=== PATIENT | male | born 1970 | race Caucasian/White ===

== ENCOUNTER 2020-09-13 14:17 | Inpatient (IN) | payer MEDICAID ==
[~2020-09-13] VITALS: Ht 165.1 cm; Wt 42.0 kg
[2020-09-13 16:04] LABS: MEAN CORPUSCULAR HEMOGLOBIN 29.8 pg (28.0-32.0); MEAN CORPUSCULAR VOLUME 92.8 fL (80.0-94.0); MEAN PLATELET VOLUME 9.7 fl (7.4-10.4); PLATELET 58 x1000/uL (130-400); RED BLOOD CELL COUNT 1.94 mill/uL (4.7-6.1); RED CELL DISTRIBUTION WIDTH 15.3 % (11.6-14.6)
[2020-09-13 16:12] LABS: CHLORIDE 107 mEq/L (98-107)
[2020-09-13 16:18] LABS: HEMOGLOBIN. 5.8 g/dL (14.0-18.0)
[2020-09-13] MEDS ORDERED: DEXTROSE 10% WATER 500 ML IV ONE (17:00)
[2020-09-13 19:00] LABS: PLATELET ESTIMATE DECREASED
[2020-09-13] MEDS ORDERED: ONDANSETRON HCL 4MG/2ML INJ IV PRN (19:45)
[2020-09-13] MEDS ORDERED: ACETAMINOPHEN 325MG TABLET PO PRN ×2 (19:45)
[2020-09-13] MEDS ORDERED: DIPHENHYDRAMINE 50MG/ML VIAL IV PRN (19:45)
[2020-09-13] MEDS ORDERED: ZOLPIDEM TARTRATE 5MG TABLET PO PRN (19:45)
[2020-09-13] MEDS: BLOOD SUGAR DIAGNOSTIC STRIP TEST SCH (21:00)
[2020-09-13] MEDS: INSULIN LISPRO 100 UNITS/ML SUBCUT SCH (23:49)
[2020-09-13] MEDS: SODIUM CHLORIDE 0.9% INJ 3ML FLUSH IVF SCH (23:50)
[2020-09-14] VITALS (8 sets, daily range): BP systolic 126–165; BP diastolic 67–87
[2020-09-14] MEDS: SODIUM CHLORIDE 0.9% INJ 3ML FLUSH IVF SCH ×3 (05:52→23:25)
[2020-09-14] MEDS: BLOOD SUGAR DIAGNOSTIC STRIP TEST SCH ×4 (07:03→21:03)
[2020-09-14] MEDS: INSULIN LISPRO 100 UNITS/ML SUBCUT SCH ×4 (07:04→21:00)
[2020-09-14] MEDS: DEXTROSE 50% WATER 50ML SYRINGE IV PRN (07:07)
[2020-09-14 09:39] LABS: HEMATOCRIT. 21.9 % (42.0-52.0); HEMOGLOBIN. 7.1 g/dL (14.0-18.0); MEAN CORPUSCULAR HEMOGLOBIN 29.2 pg (28.0-32.0); MEAN CORPUSCULAR VOLUME 90.4 fL (80.0-94.0); MEAN PLATELET VOLUME 8.6 fl (7.4-10.4); PLATELET 62 x1000/uL (130-400); RED BLOOD CELL COUNT 2.42 mill/uL (4.7-6.1); RED CELL DISTRIBUTION WIDTH 15.2 % (11.6-14.6)
[2020-09-14] MEDS ORDERED: LOPERAMIDE 2MG/15ML UDC PO PRN (15:30)
[2020-09-14] MEDS: LOPERAMIDE HCL 2MG CAPSULE PO PRN (15:53)
[2020-09-14 17:54] LABS: PLATELET ESTIMATE DECREASED
[2020-09-14] MEDS ORDERED: HEPARIN 100 UNITS/1 ML VIAL IVF PRN ×3 (23:30→23:45)
[2020-09-15] VITALS (10 sets, daily range): BP systolic 109–193; BP diastolic 52–78
[2020-09-15 03:24] LABS: HEMATOCRIT. 23.7 % (42.0-52.0); HEMOGLOBIN. 7.9 g/dL (14.0-18.0); MEAN CORPUSCULAR HEMOGLOBIN 29.8 pg (28.0-32.0); MEAN CORPUSCULAR VOLUME 89.6 fL (80.0-94.0); MEAN PLATELET VOLUME 8.8 fl (7.4-10.4); PLATELET 57 x1000/uL (130-400); RED BLOOD CELL COUNT 2.64 mill/uL (4.7-6.1); RED CELL DISTRIBUTION WIDTH 14.7 % (11.6-14.6)
[2020-09-15] MEDS: CLONIDINE 0.1MG TABLET PO PRN (04:17)
[2020-09-15] MEDS: DEXTROSE 50% WATER 50ML SYRINGE IV PRN (06:17)
[2020-09-15] MEDS: SODIUM CHLORIDE 0.9% INJ 3ML FLUSH IVF SCH ×3 (06:50→22:00)
[2020-09-15] MEDS: INSULIN LISPRO 100 UNITS/ML SUBCUT SCH ×4 (06:50→20:32)
[2020-09-15] MEDS: BLOOD SUGAR DIAGNOSTIC STRIP TEST SCH ×4 (06:50→20:31)
[2020-09-15 07:18] LABS: PLATELET ESTIMATE DECREASED
[2020-09-15] MEDS: LOPERAMIDE HCL 2MG CAPSULE PO PRN (12:58)
[2020-09-15] MEDS: FOLIC ACID/VITAMIN B COMP W-C TABLET PO SCH (12:58)
[2020-09-15] MEDS: AMLODIPINE 10MG TABLET PO SCH (16:25)
[2020-09-15] MEDS: EPOETIN ALFA-EPBX 4,000 UNIT/ML VIAL SUBCUT SCH (20:33)
[2020-09-16] VITALS: BP 150/63
[2020-09-16 04:00] VITALS: BP 177/56
[2020-09-16] MEDS: DEXTROSE 50% WATER 50ML SYRINGE IV PRN (05:43)
[2020-09-16] MEDS: SODIUM CHLORIDE 0.9% INJ 3ML FLUSH IVF SCH ×3 (05:45→21:06)
[2020-09-16] MEDS: CLONIDINE 0.1MG TABLET PO PRN (06:04)
[2020-09-16] MEDS: INSULIN LISPRO 100 UNITS/ML SUBCUT SCH ×4 (07:15→21:07)
[2020-09-16] MEDS: BLOOD SUGAR DIAGNOSTIC STRIP TEST SCH ×4 (07:21→21:06)
[2020-09-16 08:00] VITALS: BP 125/66
[2020-09-16] MEDS: FOLIC ACID/VITAMIN B COMP W-C TABLET PO SCH (08:44)
[2020-09-16] MEDS: AMLODIPINE 10MG TABLET PO SCH (08:44)
[2020-09-16] MEDS: LOPERAMIDE HCL 2MG CAPSULE PO PRN (08:47)
[2020-09-16 12:00] VITALS: BP 155/97
[2020-09-16 16:00] VITALS: BP 157/71
[2020-09-16 20:00] VITALS: BP 166/52
[2020-09-17] VITALS: BP 171/59
[2020-09-17] MEDS: CLONIDINE 0.1MG TABLET PO PRN (00:18)
[2020-09-17 04:00] VITALS: BP 161/54
[2020-09-17] MEDS: SODIUM CHLORIDE 0.9% INJ 3ML FLUSH IVF SCH ×3 (06:06→21:12)
[2020-09-17] MEDS: DEXTROSE 50% WATER 50ML SYRINGE IV PRN ×2 (06:06→12:23)
[2020-09-17] MEDS: BLOOD SUGAR DIAGNOSTIC STRIP TEST SCH ×4 (06:06→21:11)
[2020-09-17] MEDS: INSULIN LISPRO 100 UNITS/ML SUBCUT SCH ×4 (06:07→21:00)
[2020-09-17 06:24] LABS: INR 1.2; PROTHROMBIN TIME 12.3 sec (9.6-11.0)
[2020-09-17 06:26] LABS: CHLORIDE 106 mEq/L (98-107)
[2020-09-17 06:44] LABS: HEMATOCRIT. 25.3 % (42.0-52.0); HEMOGLOBIN. 8.5 g/dL (14.0-18.0); MEAN CORPUSCULAR HEMOGLOBIN 30.2 pg (28.0-32.0); MEAN CORPUSCULAR VOLUME 90.2 fL (80.0-94.0); MEAN PLATELET VOLUME 9.5 fl (7.4-10.4); PLATELET 62 x1000/uL (130-400); RED CELL DISTRIBUTION WIDTH 14.8 % (11.6-14.6)
[2020-09-17 06:48] LABS: TOTAL IRON BINDING CAPACITY 125 ug/dL (250-450)
[2020-09-17 08:00] VITALS: BP 157/91
[2020-09-17] MEDS: AMLODIPINE 10MG TABLET PO SCH (09:00)
[2020-09-17] MEDS: FOLIC ACID/VITAMIN B COMP W-C TABLET PO SCH (09:00)
[2020-09-17 12:00] VITALS: BP 144/57
[2020-09-17 15:25] LABS: NUCLEATED RED BLOOD CELLS 1 /100 WBC; PLATELET ESTIMATE DECREASED
[2020-09-17 16:00] VITALS: BP 160/82
[2020-09-17] MEDS ORDERED: SORBITOL 70% SOLN 30ML PO NR (19:00)
[2020-09-17 20:00] VITALS: BP 122/80
[2020-09-18] VITALS: BP 154/57
[2020-09-18 04:00] VITALS: BP 126/53
[2020-09-18] MEDS: DEXTROSE 50% WATER 50ML SYRINGE IV PRN ×3 (05:46→20:37)
[2020-09-18] MEDS: BLOOD SUGAR DIAGNOSTIC STRIP TEST SCH ×4 (05:46→21:26)
[2020-09-18] MEDS: INSULIN LISPRO 100 UNITS/ML SUBCUT SCH ×4 (05:46→20:38)
[2020-09-18] MEDS: SODIUM CHLORIDE 0.9% INJ 3ML FLUSH IVF SCH ×3 (05:47→21:27)
[2020-09-18 08:00] VITALS: BP 151/98
[2020-09-18] MEDS: AMLODIPINE 10MG TABLET PO SCH (09:36)
[2020-09-18] MEDS: SODIUM HYPOCHLORITE 0.125% 473ML SOLUTION TOP SCH (09:36)
[2020-09-18] MEDS: FOLIC ACID/VITAMIN B COMP W-C TABLET PO SCH (09:36)
[2020-09-18 10:53] LABS: HEMATOCRIT. 26.7 % (42.0-52.0); HEMOGLOBIN. 8.6 g/dL (14.0-18.0); MEAN CORPUSCULAR HEMOGLOBIN 29.3 pg (28.0-32.0); MEAN CORPUSCULAR VOLUME 90.8 fL (80.0-94.0); MEAN PLATELET VOLUME 9.3 fl (7.4-10.4); PLATELET 66 x1000/uL (130-400); RED BLOOD CELL COUNT 2.94 mill/uL (4.7-6.1); RED CELL DISTRIBUTION WIDTH 15.7 % (11.6-14.6)
[2020-09-18 11:01] LABS: INR 1.2; PROTHROMBIN TIME 12.4 sec (9.6-11.0)
[2020-09-18 11:30] LABS: CHLORIDE 109 mEq/L (98-107)
[2020-09-18 11:41] LABS: PHOSPHORUS 4.9 mg/dL (2.5-4.9)
[2020-09-18 12:00] VITALS: BP 153/66
[2020-09-18 13:35] LABS: PLATELET ESTIMATE DECREASED
[2020-09-18 16:00] VITALS: BP 143/84
[2020-09-18] MEDS ORDERED: FENTANYL CITRATE/PF 50MCG/ML 2ML VIAL ONE (16:42)
[2020-09-18] MEDS ORDERED: MIDAZOLAM HCL 5 MG/5 ML VIAL ONE (16:42)
[2020-09-18] MEDS ORDERED: MIDAZOLAM HCL 2 MG/2 ML VIAL IV PRN (17:00)
[2020-09-18] MEDS ORDERED: FENTANYL CITRATE/PF 50MCG/ML 2ML VIAL IV PRN (17:05)
[2020-09-18 20:00] VITALS: BP 122/45
[2020-09-18] MEDS: EPOETIN ALFA-EPBX 4,000 UNIT/ML VIAL SUBCUT SCH (21:26)
[2020-09-19] VITALS: BP 145/48
[2020-09-19 04:00] VITALS: BP 136/70
[2020-09-19 06:35] LABS: INR 1.2; PROTHROMBIN TIME 12.3 sec (9.6-11.0)
[2020-09-19] MEDS: SODIUM CHLORIDE 0.9% INJ 3ML FLUSH IVF SCH ×3 (06:42→22:00)
[2020-09-19 06:43] LABS: CHLORIDE 111 mEq/L (98-107)
[2020-09-19 06:44] LABS: GAMMA GLUTAMYL TRANSPEPTIDASE 99 IU/L (11-50); HEMATOCRIT. 26.9 % (42.0-52.0); HEMOGLOBIN. 8.8 g/dL (14.0-18.0); MEAN CORPUSCULAR HEMOGLOBIN 29.8 pg (28.0-32.0); MEAN PLATELET VOLUME 9.2 fl (7.4-10.4); PLATELET 66 x1000/uL (130-400); RED BLOOD CELL COUNT 2.95 mill/uL (4.7-6.1); RED CELL DISTRIBUTION WIDTH 15.5 % (11.6-14.6)
[2020-09-19] MEDS: BLOOD SUGAR DIAGNOSTIC STRIP TEST SCH ×4 (06:51→21:00)
[2020-09-19] MEDS: INSULIN LISPRO 100 UNITS/ML SUBCUT SCH ×4 (06:51→21:00)
[2020-09-19 07:03] LABS: HEPATITIS B SURFACE ANTIGEN NEGATIVE
[2020-09-19 08:00] VITALS: BP 138/60
[2020-09-19] MEDS: AMLODIPINE 10MG TABLET PO SCH (09:33)
[2020-09-19] MEDS: SODIUM HYPOCHLORITE 0.125% 473ML SOLUTION TOP SCH (09:33)
[2020-09-19] MEDS: PANTOPRAZOLE SODIUM 40 MG/VIAL IV SCH (09:33)
[2020-09-19] MEDS: FOLIC ACID/VITAMIN B COMP W-C TABLET PO SCH (09:33)
[2020-09-19 12:00] VITALS: BP_SYST 132; BP_SYST 162; BP_DIAS 36; BP_DIAS 51
[2020-09-19 16:00] VITALS: BP 133/32
[2020-09-19 16:08] LABS: PLATELET ESTIMATE DECREASED
[2020-09-19 19:06] LABS: OVA & PARASITE EXAM Final report (.)
[2020-09-19 20:00] VITALS: BP 155/43
[2020-09-20] VITALS: BP 148/62
[2020-09-20 04:00] VITALS: BP 147/49
[2020-09-20] MEDS: SODIUM CHLORIDE 0.9% INJ 3ML FLUSH IVF SCH ×3 (06:00→22:33)
[2020-09-20] MEDS: INSULIN LISPRO 100 UNITS/ML SUBCUT SCH ×4 (07:02→21:00)
[2020-09-20] MEDS: BLOOD SUGAR DIAGNOSTIC STRIP TEST SCH ×4 (07:02→21:00)
[2020-09-20 07:18] LABS: PHOSPHORUS 4.3 mg/dL (2.5-4.9)
[2020-09-20 08:00] VITALS: BP 159/51
[2020-09-20 11:59] VITALS: BP 164/65
[2020-09-20] MEDS: PANTOPRAZOLE SODIUM 40 MG/VIAL IV SCH (12:04)
[2020-09-20] MEDS: AMLODIPINE 10MG TABLET PO SCH (12:05)
[2020-09-20] MEDS: FOLIC ACID/VITAMIN B COMP W-C TABLET PO SCH (12:05)
[2020-09-20 16:00] VITALS: BP 143/44
[2020-09-20] MEDS: SODIUM HYPOCHLORITE 0.125% 473ML SOLUTION TOP SCH (17:54)
[2020-09-20 20:00] VITALS: BP 133/79
[2020-09-20] MEDS: EPOETIN ALFA-EPBX 4,000 UNIT/ML VIAL SUBCUT SCH (22:33)
[2020-09-21] VITALS: BP 130/97
[2020-09-21 04:00] VITALS: BP 136/51
[2020-09-21] MEDS: SODIUM CHLORIDE 0.9% INJ 3ML FLUSH IVF SCH ×3 (04:56→21:14)
[2020-09-21] MEDS: BLOOD SUGAR DIAGNOSTIC STRIP TEST SCH ×4 (06:28→21:13)
[2020-09-21] MEDS: INSULIN LISPRO 100 UNITS/ML SUBCUT SCH ×4 (06:29→21:00)
[2020-09-21 08:00] VITALS: BP 158/81
[2020-09-21] MEDS: FOLIC ACID/VITAMIN B COMP W-C TABLET PO SCH (08:52)
[2020-09-21] MEDS: AMLODIPINE 10MG TABLET PO SCH (08:52)
[2020-09-21] MEDS: PANTOPRAZOLE SODIUM 40 MG/VIAL IV SCH (08:52)
[2020-09-21] MEDS: SODIUM HYPOCHLORITE 0.125% 473ML SOLUTION TOP SCH (08:57)
[2020-09-21] MEDS ORDERED: PIPERACILLIN/TAZOBACTAM 3.375 G in DEXT 5% WATER 100 ML IV SCH (11:45)
[2020-09-21 12:00] VITALS: BP 167/45
[2020-09-21] MEDS: PIPERACILLIN/TAZOBACTAM 2.25 G in DEXTROSE 5% WATER 50 ML IV SCH ×2 (14:52→21:14)
[2020-09-21 16:00] VITALS: BP 130/26
[2020-09-22] VITALS: BP 93/57
[2020-09-22 04:00] VITALS: BP 151/59
[2020-09-22] MEDS: PIPERACILLIN/TAZOBACTAM 2.25 G in DEXTROSE 5% WATER 50 ML IV SCH ×3 (05:26→21:17)
[2020-09-22] MEDS: SODIUM CHLORIDE 0.9% INJ 3ML FLUSH IVF SCH ×3 (05:26→21:17)
[2020-09-22] MEDS: BLOOD SUGAR DIAGNOSTIC STRIP TEST SCH ×3 (06:58→21:15)
[2020-09-22] MEDS: INSULIN LISPRO 100 UNITS/ML SUBCUT SCH ×3 (06:58→21:18)
[2020-09-22 08:00] VITALS: BP_SYST 59
[2020-09-22] MEDS: AMLODIPINE 10MG TABLET PO SCH (09:00)
[2020-09-22 09:19] LABS: EOSINOPHILS % 14.5 % (0.0-5.0); HEMATOCRIT. 32.3 % (42.0-52.0); HEMOGLOBIN. 10.4 g/dL (14.0-18.0); MEAN CORPUSCULAR HEMOGLOBIN 29.7 pg (28.0-32.0); MEAN CORPUSCULAR VOLUME 92.3 fL (80.0-94.0); MEAN PLATELET VOLUME 9.3 fl (7.4-10.4); MONOCYTES % 7.6 % (2.0-8.0); NEUTROPHILS % 43.9 % (40.0-76.0); PLATELET 77 x1000/uL (130-400); RED CELL DISTRIBUTION WIDTH 16.4 % (11.6-14.6)
[2020-09-22 09:26] LABS: CHLORIDE 108 mEq/L (98-107)
[2020-09-22 09:30] LABS: INR 1.1; PARTIAL THROMBOPLASTIN TIME 33.6 sec (23.4-31.0); PROTHROMBIN TIME 11.8 sec (9.6-11.0)
[2020-09-22] MEDS: PANTOPRAZOLE SODIUM 40 MG/VIAL IV SCH (09:32)
[2020-09-22] MEDS: FOLIC ACID/VITAMIN B COMP W-C TABLET PO SCH (09:32)
[2020-09-22] MEDS: SODIUM HYPOCHLORITE 0.125% 473ML SOLUTION TOP SCH (09:32)
[2020-09-22 12:00] VITALS: BP 137/89
[2020-09-22] MEDS: DEXTROSE 50% WATER 50ML SYRINGE IV PRN (12:11)
[2020-09-22 16:00] VITALS: BP 156/62
[2020-09-22] MEDS: EPOETIN ALFA-EPBX 4,000 UNIT/ML VIAL SUBCUT SCH (21:00)
[2020-09-23] VITALS: BP 159/60
[2020-09-23 04:00] VITALS: BP 158/45
[2020-09-23] MEDS: PIPERACILLIN/TAZOBACTAM 2.25 G in DEXTROSE 5% WATER 50 ML IV SCH ×3 (05:43→20:41)
[2020-09-23] MEDS: SODIUM CHLORIDE 0.9% INJ 3ML FLUSH IVF SCH ×3 (05:44→20:41)
[2020-09-23] MEDS: BLOOD SUGAR DIAGNOSTIC STRIP TEST SCH ×4 (05:44→21:00)
[2020-09-23] MEDS: INSULIN LISPRO 100 UNITS/ML SUBCUT SCH ×4 (07:15→21:00)
[2020-09-23 08:00] VITALS: BP 111/84
[2020-09-23] MEDS: AMLODIPINE 10MG TABLET PO SCH (08:34)
[2020-09-23] MEDS: PANTOPRAZOLE SODIUM 40 MG/VIAL IV SCH (09:10)
[2020-09-23] MEDS: SODIUM HYPOCHLORITE 0.125% 473ML SOLUTION TOP SCH (09:11)
[2020-09-23] MEDS: FOLIC ACID/VITAMIN B COMP W-C TABLET PO SCH (09:11)
[2020-09-23 12:00] VITALS: BP 145/58
[2020-09-23 16:00] VITALS: BP 154/72
[2020-09-23 20:00] VITALS: BP 140/34
[2020-09-24] VITALS (8 sets, daily range): BP systolic 93–183; BP diastolic 31–71
[2020-09-24] MEDS: PIPERACILLIN/TAZOBACTAM 2.25 G in DEXTROSE 5% WATER 50 ML IV SCH ×3 (05:34→21:45)
[2020-09-24] MEDS: SODIUM CHLORIDE 0.9% INJ 3ML FLUSH IVF SCH ×3 (05:34→21:46)
[2020-09-24] MEDS: BLOOD SUGAR DIAGNOSTIC STRIP TEST SCH ×4 (06:23→21:46)
[2020-09-24] MEDS: INSULIN LISPRO 100 UNITS/ML SUBCUT SCH ×4 (06:23→21:00)
[2020-09-24] MEDS: AMLODIPINE 10MG TABLET PO SCH (09:00)
[2020-09-24] MEDS: PANTOPRAZOLE SODIUM 40 MG/VIAL IV SCH (09:42)
[2020-09-24] MEDS: FOLIC ACID/VITAMIN B COMP W-C TABLET PO SCH (09:42)
[2020-09-24] MEDS: SODIUM HYPOCHLORITE 0.125% 473ML SOLUTION TOP SCH (09:43)
[2020-09-24] MEDS: VANCOMYCIN HCL 1000 MG/20 ML ORAL PO SCH ×3 (14:09→23:25)
[2020-09-25] VITALS (7 sets, daily range): BP systolic 65–165; BP diastolic 47–74
[2020-09-25] MEDS: SODIUM CHLORIDE 0.9% INJ 3ML FLUSH IVF SCH ×3 (05:36→21:30)
[2020-09-25] MEDS: PIPERACILLIN/TAZOBACTAM 2.25 G in DEXTROSE 5% WATER 50 ML IV SCH ×3 (05:36→21:30)
[2020-09-25] MEDS: VANCOMYCIN HCL 1000 MG/20 ML ORAL PO SCH ×3 (05:36→18:27)
[2020-09-25] MEDS: BLOOD SUGAR DIAGNOSTIC STRIP TEST SCH ×4 (05:42→21:31)
[2020-09-25] MEDS: INSULIN LISPRO 100 UNITS/ML SUBCUT SCH ×4 (05:42→21:00)
[2020-09-25 06:37] LABS: BASOPHILS % 1.1 % (0.0-2.0); EOSINOPHILS % 14.4 % (0.0-5.0); HEMATOCRIT. 28.6 % (42.0-52.0); HEMOGLOBIN. 9.1 g/dL (14.0-18.0); LYMPHOCYTES % 24.5 % (20.0-50.0); MEAN CORPUSCULAR HEMOGLOBIN 29.8 pg (28.0-32.0); MEAN CORPUSCULAR VOLUME 93.4 fL (80.0-94.0); MEAN PLATELET VOLUME 9.2 fl (7.4-10.4); MONOCYTES % 10.2 % (2.0-8.0); NEUTROPHILS % 49.8 % (40.0-76.0); PLATELET 66 x1000/uL (130-400); RED BLOOD CELL COUNT 3.06 mill/uL (4.7-6.1)
[2020-09-25 06:46] LABS: INR 1.1; PARTIAL THROMBOPLASTIN TIME 31.3 sec (23.4-31.0); PROTHROMBIN TIME 11.8 sec (9.6-11.0)
[2020-09-25 07:57] LABS: CHLORIDE 116 mEq/L (98-107)
[2020-09-25] MEDS: FOLIC ACID/VITAMIN B COMP W-C TABLET PO SCH (09:00)
[2020-09-25] MEDS: PANTOPRAZOLE SODIUM 40 MG/VIAL IV SCH (09:27)
[2020-09-25] MEDS: SODIUM HYPOCHLORITE 0.125% 473ML SOLUTION TOP SCH (09:27)
[2020-09-25] MEDS: AMLODIPINE 10MG TABLET PO SCH (09:27)
[2020-09-25] MEDS: DEXTROSE 50% WATER 50ML SYRINGE IV PRN ×2 (12:29→16:30)
[2020-09-25] MEDS ORDERED: SODIUM CHLORIDE 0.9% 1000ML BAG (SEPSIS BOLUS) IV ONE (13:00)
[2020-09-25] MEDS ORDERED: SODIUM CHLORIDE 0.9% 500 ML IV SCH (13:00)
[2020-09-25] MEDS: DEXTROSE 5% WATER 1,000 ML IV SCH (16:12)
[2020-09-25] MEDS: EPOETIN ALFA-EPBX 4,000 UNIT/ML VIAL SUBCUT SCH (21:30)
[2020-09-26] VITALS: BP 167/69
[2020-09-26] MEDS: VANCOMYCIN HCL 1000 MG/20 ML ORAL PO SCH ×4 (00:26→17:47)
[2020-09-26 04:00] VITALS: BP 147/80
[2020-09-26] MEDS: SODIUM CHLORIDE 0.9% INJ 3ML FLUSH IVF SCH ×3 (05:05→22:06)
[2020-09-26] MEDS: PIPERACILLIN/TAZOBACTAM 2.25 G in DEXTROSE 5% WATER 50 ML IV SCH ×3 (05:05→22:15)
[2020-09-26] MEDS: BLOOD SUGAR DIAGNOSTIC STRIP TEST SCH ×4 (06:03→21:30)
[2020-09-26] MEDS: DEXTROSE 50% WATER 50ML SYRINGE IV PRN (06:03)
[2020-09-26 07:32] LABS: PHOSPHORUS 5.1 mg/dL (2.5-4.9)
[2020-09-26] MEDS: FOLIC ACID/VITAMIN B COMP W-C TABLET PO SCH (08:56)
[2020-09-26] MEDS: AMLODIPINE 10MG TABLET PO SCH (08:56)
[2020-09-26] MEDS: PANTOPRAZOLE SODIUM 40 MG/VIAL IV SCH (10:07)
[2020-09-26] MEDS: SODIUM HYPOCHLORITE 0.125% 473ML SOLUTION TOP SCH (10:09)
[2020-09-26 12:00] VITALS: BP 151/64
[2020-09-26] MEDS: DEXTROSE 5% WATER 1,000 ML IV SCH (12:00)
[2020-09-26 16:00] VITALS: BP 163/65
[2020-09-26 20:00] VITALS: BP 156/69
[2020-09-27] VITALS: BP 149/30
[2020-09-27] MEDS: VANCOMYCIN HCL 1000 MG/20 ML ORAL PO SCH ×3 (00:41→12:41)
[2020-09-27 04:00] VITALS: BP 135/39
[2020-09-27] MEDS: SODIUM CHLORIDE 0.9% INJ 3ML FLUSH IVF SCH (06:02)
[2020-09-27] MEDS: DEXTROSE 5% WATER 1,000 ML IV SCH (06:03)
[2020-09-27] MEDS: BLOOD SUGAR DIAGNOSTIC STRIP TEST SCH ×3 (06:13→16:45)
[2020-09-27 07:19] LABS: PHOSPHORUS 4.6 mg/dL (2.5-4.9)
[2020-09-27 08:00] VITALS: BP 131/52
[2020-09-27] MEDS: PANTOPRAZOLE SODIUM 40 MG/VIAL IV SCH (08:42)
[2020-09-27] MEDS: AMLODIPINE 10MG TABLET PO SCH (08:43)
[2020-09-27] MEDS: FOLIC ACID/VITAMIN B COMP W-C TABLET PO SCH (08:43)
[2020-09-27 12:00] VITALS: BP 164/31
[2020-09-27] MEDS: DEXTROSE 50% WATER 50ML SYRINGE IV PRN (12:13)
[2020-09-27] MEDS: CLONIDINE 0.1MG TABLET PO PRN (14:05)
[2020-09-27 14:14] VITALS: BP 135/100
[2020-09-27 16:00] VITALS: BP 135/108
[2020-09-27 18:51] LABS: HEMATOCRIT 23.8 % (42.0-52.0); HEMOGLOBIN 7.6 g/dL (14.0-18.0)
== END 2020-09-27 18:55 | DRG 241 ==
LOC: ER 14:32 → EDBEDREQ 18:23 → EDBEDREQTM 18:23 → ENRESERV 21:53 → 5WST 22:46
PROVIDERS: ADMIT Internal Medicine; ATTEND Internal Medicine
PROC: 30233N1 Transfusion of Nonautologous Red Blood Cells into Peripheral Vein, Percutaneous Approach (ICD-10-PCS; 2020-09-13)
PROC: 05HN33Z Insertion of Infusion Device into Left Internal Jugular Vein, Percutaneous Approach (ICD-10-PCS; 2020-09-13)
PROC: B544ZZA Ultrasonography of Left Jugular Veins, Guidance (ICD-10-PCS; 2020-09-13)
PROC: 05HN33Z Insertion of Infusion Device into Left Internal Jugular Vein, Percutaneous Approach (ICD-10-PCS; 2020-09-14)
PROC: B544ZZA Ultrasonography of Left Jugular Veins, Guidance (ICD-10-PCS; 2020-09-14)
PROC: 5A1D70Z Performance of Urinary Filtration, Intermittent, Less than 6 Hours Per Day (ICD-10-PCS; 2020-09-14)
PROC: 5A1D70Z Performance of Urinary Filtration, Intermittent, Less than 6 Hours Per Day (ICD-10-PCS; 2020-09-15)
PROC: 5A1D70Z Performance of Urinary Filtration, Intermittent, Less than 6 Hours Per Day (ICD-10-PCS; 2020-09-17)
PROC: 0DB78ZX Excision of Stomach, Pylorus, Via Natural or Artificial Opening Endoscopic, Diagnostic (ICD-10-PCS; principal; 2020-09-18)
PROC: 5A1D70Z Performance of Urinary Filtration, Intermittent, Less than 6 Hours Per Day (ICD-10-PCS; 2020-09-19)
PROC: 5A1D70Z Performance of Urinary Filtration, Intermittent, Less than 6 Hours Per Day (ICD-10-PCS; 2020-09-21)
PROC: 5A1D70Z Performance of Urinary Filtration, Intermittent, Less than 6 Hours Per Day (ICD-10-PCS; 2020-09-23)
PROC: 5A1D70Z Performance of Urinary Filtration, Intermittent, Less than 6 Hours Per Day (ICD-10-PCS; 2020-09-25)
DX: K29.81 Duodenitis with bleeding (principal); G93.41 Metabolic encephalopathy; K29.71 Gastritis, unspecified, with bleeding; E43 Unspecified severe protein-calorie malnutrition; D61.818 Other pancytopenia; N18.6 End stage renal disease; E03.9 Hypothyroidism, unspecified; E11.22 Type 2 diabetes mellitus with diabetic chronic kidney disease; E11.649 Type 2 diabetes mellitus with hypoglycemia without coma; F17.200 Nicotine dependence, unspecified, uncomplicated; I13.2 Hypertensive heart and chronic kidney disease with heart failure and with stage 5 chronic kidney disease, or end stage renal disease; I50.9 Heart failure, unspecified; J84.9 Interstitial pulmonary disease, unspecified; K56.41 Fecal impaction; K74.60 Unspecified cirrhosis of liver; L85.3 Xerosis cutis; R18.8 Other ascites; Z53.20 Procedure and treatment not carried out because of patient's decision for unspecified reasons; D64.9 Anemia, unspecified; E21.3 Hyperparathyroidism, unspecified; L89.896 Pressure-induced deep tissue damage of other site; I70.90 Unspecified atherosclerosis; N26.1 Atrophy of kidney (terminal); A04.72 Enterocolitis due to Clostridium difficile, not specified as recurrent; K80.50 Calculus of bile duct without cholangitis or cholecystitis without obstruction; E87.2 Acidosis; I95.9 Hypotension, unspecified; E87.0 Hyperosmolality and hypernatremia; E87.5 Hyperkalemia; E87.8 Other disorders of electrolyte and fluid balance, not elsewhere classified; Z90.49 Acquired absence of other specified parts of digestive tract; Z86.16 Personal history of COVID-19; Z86.74 Personal history of sudden cardiac arrest; Z87.01 Personal history of pneumonia (recurrent); Z99.2 Dependence on renal dialysis; Z68.1 Body mass index [BMI] 19.9 or less, adult; Z20.822 Contact with and (suspected) exposure to COVID-19
CPT/HCPCS: 36415; 71045; 74176; 74181; 76700; 76937; 80048; 80053; 80069; 82040; 82140; 82270; 82607; 82728; 82746; 82962; 82977; 83036; 83540; 83550; 84100; 84134; 85014; 85018; 85025; 86705; 86803; 86850; 86900; 86920; 87015; 87045; 87177; 87209; 87340; 87426; 87427; 87449; 87493; 88305; 88313; 89055; 93005; 93923; 97162; 97530; 99291; C1725; C9113; J0885; J1815; J2250; J2543; J3010; J3370; J7040; J7060; J7070; P9016